=== PATIENT | female | born 1965 | race Caucasian/White ===

== ENCOUNTER → 2020-09-04 | Outpatient (CLI) | payer OTHER, SELFPAY ==
--- NOTE | 2020-09-04 09:15 | LES_PTH ---
PATIENT: MONTANA VAZQUEZ LOC: [facility] U#:[id number] AGE/SX: 55/F ROOM: RE09/04/[address]: Dr. Eloisa Cook DO : 1965 BED: DIS: 09/04/2020 SPEC #: [id number] RECD: 09/04/20 12:26 STATUS: JASON BARRIE #: [id number] EDWARD: 09/04/20 09:[address]: Eolisa Cook DEPT: SURGICAL PATHOLOGY RECD BY: Dawna Pearce Tissues: Skin of forearm, NOS Procedures: Special Stain Group I Surgery Specimen Level IV GMS Stain (control) HEADER OPERATION: Excision lesion left forearm PRE-OP DIAGNOSIS: Rule out BCC TISSUE SUBMITTED: Left forearm MICROSCOPIC DIAGNOSIS Left forearm lesion, excisional biopsy: Consistent with inflamed benign keratosis with mild atypia. Hyperkeratosis and parakeratosis. Negative for malignancy. Special stain for fungi is negative for organisms; matched control is appropriate. See comment. SJ:jose 09/06/20 COMMENT The lesion is completely excised in the planes of section examined. Clinical correlation and appropriate follow up are necessary. Case has been reviewed in consultation with Dr. Meyer who concurs with the above diagnosis. IDC:AM MICROSCOPIC DESCRIPTION Slides are reviewed. GROSS DESCRIPTION Received is one container labeled with the patient's name and not further designated. The specimen consists of an irregular fragment of kendrick excised skin measuring 1.1 x 0.8 x 0.2 cm. The specimen is inked, sectioned and totally submitted in one cassette. / AM:jose 09/04/20 TC:5 CPT: 95386, 57095
== END | disposition home or self-care (01) ==
LOC: LABSPEC 10:33
PROVIDERS: PCP Family Medicine; Visit Provider Family Medicine
DX: L85.9 Epidermal thickening, unspecified (principal)
CPT/HCPCS: 88305; 88312

== ENCOUNTER 2021-09-04 08:46 | Outpatient (CLI) | payer OTHER, SELFPAY ==
[2021-09-04] MEDS: 0.9% Saline Lock 10 ML Syringe IV (08:56)
[2021-09-04 09:00] VITALS: BP 122/87; PULSE 78; RESP 16; TEMP 36.6; O2SAT 97; BMI 30.9
[2021-09-04 10:00] VITALS: BP 115/74; PULSE 74; RESP 16; TEMP 36.7; O2SAT 98
[2021-09-04 10:49] VITALS: BP 133/84; PULSE 73; RESP 16; TEMP 36.8; O2SAT 98
== END 2021-09-04 11:00 | disposition home or self-care (01) ==
LOC: MS3OUT 08:47 → MS3 08:47
PROVIDERS: PCP Family Medicine; Referring Provider Nurse Practitioner Adult Health; Visit Provider Nurse Practitioner Adult Health
DX: Z23 Encounter for immunization (principal); U07.1 COVID-19
CPT/HCPCS: J7050; M0245; Q0245; A4216

== ENCOUNTER → 2025-07-15 | Outpatient (CLI) | payer OTHER, SELFPAY ==
--- NOTE | 2025-07-15 10:05 | RAD_ITS ---
PROCEDURE: LUMBAR SPINE 2 OR 3 VIEWS 07/15/2025 REASON FOR EXAM: LOW BACK PAIN, HIP PAIN TECHNIQUE: Procedure Code: RADSPLL Modality: DX Procedure: LUMBAR SPINE 2 OR 3 VIEWS COMPARISON: None. RAD/Lumbar Spine 2 or 3 Views IMPRESSION: Right upper quadrant abdominal surgical clips are seen. Bilateral Essure devices are seen. A moderately large stool burden is noted. No small bowel dilation is seen. Degenerative changes are seen throughout the visualized lower thoracic and lumb ar spine, with reverse S shaped scoliosis present. Degenerative changes throughout the lumbar spine are seen, particularly L2 thro ugh S1 levels. Disc narrowing is greatest at L3-L4, where it is moderately severe. Mid to lower lumbar posterior facet hypertrophy is seen. No evidence of spondy lolysis or spondylolisthesis. Sacroiliac joints demonstrate at least minimal degenerative changes. Reading Location: [place] [id number]
== END | disposition home or self-care (01) ==
PROVIDERS: PCP Family Medicine; Referring Provider Family Medicine; Visit Provider Family Medicine
DX: M54.50 Low back pain, unspecified (principal); M25.551 Pain in right hip
CPT/HCPCS: 72100